=== PATIENT | female | born 1975 | race Two or more races ===

== ENCOUNTER 2019-02-25 16:27 | Emergency (ER) ==
[~2019-02-25] VITALS: Ht 144.8 cm; Wt 95.3 kg
[2019-02-25 16:38] VITALS: BP 126/73
[2019-02-25] MEDS ORDERED: IBUPROFEN 600 MG TABLET PO ONE ×2 (17:00→17:18)
== END 2019-02-25 17:59 | disposition home or self-care (01) ==
LOC: ER 16:29
DX: M25.511 Pain in right shoulder (principal)
CPT/HCPCS: 73030-TC